=== PATIENT | male | born 1955 | race Caucasian/White ===

== ENCOUNTER 2021-04-19 07:59 | Outpatient (CLI) | payer MEDICARE, OTHER | END 2021-04-19 08:00 | disposition home or self-care (01) | LOC: CSHCT 07:59 | PROVIDERS: ATTEND Family Medicine | DX: R31.0 Gross hematuria (principal); N28.9 Disorder of kidney and ureter, unspecified; K59.00 Constipation, unspecified | CPT/HCPCS: 74178 ==